=== PATIENT | male | born 1975 | race Caucasian/White ===

== ENCOUNTER → 2024-10-29 | Outpatient (CLI) | payer BC, OTHER, SELFPAY ==
--- NOTE | 2024-10-29 | XR_ITS ---
Examination: Foot, right, 3 views Technique: AP, oblique, lateral views foot, 3 views Date and time of exam: October 29, 2024 0720 hrs. Indications: Metatarsal pain 6 months Findings: No acute fracture No dislocation No foreign body No cortical bone destruction Mild narrowing first metatarsophalangeal joint Impression: Mild narrowing first metatarsophalangeal joint
[2024-10-29 08:34] LABS: Basophils % (Auto) 1 % (0-2.5); Eosinophils # (Auto) 0.1 Thou/mm3 (0.0-0.5); Eosinophils % (Auto) 3 % (0-10); Hematocrit 41.8 % (41.0-53.0); Hemoglobin 14.5 g/dL (13.5-16.0); Immature Granulocytes % (Auto) 1 % (0-0); Immature Granulocytes Auto 0.02 Thou/mm3 (0.00-0.00); Lymphocytes # (Auto) 1.2 Thou/mm3 (1.0-4.8); Lymphocytes % (Auto) 30 % (10-50); Mean Corpuscular HGB Conc 34.7 g/dl (31.0-37.0); Mean Corpuscular Hemoglobin 29.5 pg (25.0-35.0); Mean Corpuscular Volume 85 fL (80-100); Monocytes # (Auto) 0.5 Thou/mm3 (0.0-0.8); Monocytes % (Auto) 12 % (0-12); Neutrophils % (Auto) 54 % (37-80); Nucleated Red Blood Cell % 0 /100 WBC (0); Platelet Count 249 Thou/mm3 (140-440); RDW Standard Deviation 37.4 fL (35.1-43.9); Red Blood Count 4.91 Miln/mm3 (4.50-5.90); White Blood Count 3.8 Thou/mm3 (3.8-10.6)
[2024-10-29 08:48] LABS: Glucose Estimated Average 94 mg/dL (80-131); Hemoglobin A1C 4.9 % Hgb (4.8-6.0)
[2024-10-29 09:01] LABS: Albumin, Serum 4.3 gm/dL (3.5-5.0); Alkaline Phosphatase 80 U/L (46-116); Anion Gap 7 (7-16); Aspartate Amino Transferase 19 U/L (0-34); BUN/Creatinine Ratio 14 Ratio (12-20); Blood Urea Nitrogen 14 mg/dL (9-23); Calcium 9.1 mg/dL (8.3-10.6); Calcium (Corrected) 9.1 mg/dL (8.5-10.1); Carbon Dioxide 27.3 mMol/L (20.0-31.0); Cardiac Risk Estimate 2.7 RATIO (4.0-6.7); Chloride 106 mMol/L (98-107); Cholesterol 159 mg/dL (132-200); Free T4 (Free Thyroxine) 1.22 ng/dL (0.89-1.76); Glucose 99 mg/dL (74-106); HDL Cholesterol 58 mg/dL (40-60); LDL Cholesterol,Calculated 86 mg/dL (0-130); Osmolality,Calculated 279 (275-295); Potassium 4.5 mMol/L (3.4-5.1); Sodium 140 mMol/L (136-145); Triglycerides 76 mg/dL (30-150); Vitamin D 25 Hydroxy Total 38.1 ng/mL (7.3-40.2); eGFR > 60 See Note
[2024-10-29 09:15] LABS: Alanine Aminotransferase 19 U/L (10-49); Albumin/Globulin Ratio 1.6 (1.2-2.2); Bilirubin,Total 0.9 mg/dL (0.3-1.2); Globulin 2.7 gm/dL (2.3-3.5)
== END | disposition home or self-care (01) ==
PROVIDERS: PCP Internal Medicine; Referring Provider Internal Medicine; Visit Provider Internal Medicine
DX: M25.871 Other specified joint disorders, right ankle and foot (principal); Z00.00 Encounter for general adult medical examination without abnormal findings; E11.9 Type 2 diabetes mellitus without complications; E55.9 Vitamin D deficiency, unspecified
CPT/HCPCS: 36415; 73630; 80053; 80061; 82306; 83036; 84439; 84443; 85025